=== PATIENT | female | born 1975 | race African-American/Black ===

== ENCOUNTER → 2023-09-22 | Day surgery (SDC) | payer OTHER ==
[~2023-09-22] MED LIST: ASPIRIN81 MG PO; FISH OIL 1,0001 EAC7; FOLATE; LIDOCAINE HCL 2% LOCAL INJ 5 ML SDV VIAL INJ ONE; MAGNESIUM; PROPOFOL IV EMULSION 10 MG/ML 20 ML VIAL ONE; VITAMIN D; VITAMIN E400 UNI1 PO
[2023-09-22] MEDS: LACTATED RINGER'S 1,000 ML ONE (13:35)
[2023-09-22 18:05] VITALS: BP 112/86; PULSE 77; RESP 17; TEMP 97; O2SAT 97
== END | disposition home or self-care (01) ==
LOC: EDSEX 08:00 → OR 13:06
PROVIDERS: ATTEND Internal Medicine Gastroenterology
DX: Z12.11 Encounter for screening for malignant neoplasm of colon (principal); K63.5 Polyp of colon; K62.1 Rectal polyp; K52.9 Noninfective gastroenteritis and colitis, unspecified; K64.8 Other hemorrhoids; Z71.3 Dietary counseling and surveillance; F17.290 Nicotine dependence, other tobacco product, uncomplicated; Z71.6 Tobacco abuse counseling; Z79.82 Long term (current) use of aspirin; Z68.27 Body mass index [BMI] 27.0-27.9, adult; Z80.0 Family history of malignant neoplasm of digestive organs
CPT/HCPCS: 45385; C9113; J2001; J2704; J7121; 45378; 45380